=== PATIENT | male | born 1995 | race Hispanic/Latino ===

== ENCOUNTER 2024-10-05 13:16 | Emergency (ER) | payer SELFPAY ==
[2024-10-05] MEDS ORDERED: Ibuprofen 200 MG TAB ONE (13:38)
[2024-10-05] MEDS ORDERED: Cyclobenzaprine 10 MG TAB ONE (13:38)
[2024-10-05 13:46] LABS: #Basophils 0.03 10x3/uL (0.0-0.2); %Basophils 0.3 % (0.0-1.0); %Eosinophils 0.3 % (0.0-10.0); %Lymphocytes 22.8 % (21.0-51.0); %Monocytes 5.8 % (0.0-10.0); %Neutrophils 70.4 % (42.0-75.0); Hematocrit 43.4 % (42.0-52.0); Hemoglobin 15.4 g/dL (14.0-18.0); Mean Corpuscular HGB CONC 35.5 g/dL (32.0-36.0); Mean Corpuscular Hemoglobin 31.8 pg (27.0-31.0); Mean Corpuscular Volume 89.5 fL (78.0-98.0); Mean Platelet Volume 8.8 fL (7.4-10.4); Platelet Count 314 10x3/uL (130-400); Red Blood Cell (RBC) Count 4.85 mill/uL (4.70-6.10)
[2024-10-05 13:59] LABS: ALT (SGPT) 67 U/L (8-55); AST (SGOT) 33 U/L (5-34); Albumin 4.8 g/dL (3.5-5.0); Alkaline Phosphatase 80 U/L (40-110); Anion Gap 16 mmol/L (10-20); BUN (Urea Nitrogen) 7 mg/dL (8.9-20.6); Bilirubin, Total 0.4 mg/dL (0.2-1.2); Calc. Creatinine Clearance 0 mL/min (70-130); Carbon Dioxide 19 mmol/L (22-29); Chloride 110 mmol/L (98-107); Estimated GFR 131; Globulin 3.3 g/dL (2.4-3.5); Glucose 95 mg/dL (70-105); Protein, Total 8.1 g/dL (6.0-8.3); Sodium 141 mmol/L (136-145)
[2024-10-05 14:05] LABS: Troponin I Less than 0.010 ng/mL (< 0.028)
== END 2024-10-05 14:32 | disposition home or self-care (01) ==
LOC: ERS 13:16
DX: S16.1XXA Strain of muscle, fascia and tendon at neck level, initial encounter (principal); R07.89 Other chest pain; F17.210 Nicotine dependence, cigarettes, uncomplicated; W01.198A Fall on same level from slipping, tripping and stumbling with subsequent striking against other object, initial encounter
CPT/HCPCS: 36415; 71045; 80053; 84484; 85025; 93005